=== PATIENT | male | born 1975 | race Caucasian/White ===

== ENCOUNTER 2016-10-21 01:31 | Emergency (ER) | payer SELFPAY ==
[~2016-10-21] VITALS: Ht 172.7 cm; Wt 72.6 kg
[2016-10-21] MEDS ORDERED: ONDANSETRON HCL 4 MG/2 ML VIAL IV ONE (04:00)
[2016-10-21] MEDS ORDERED: HYDROmorphone HCL 2 MG/ML VL IV ONE (04:00)
[2016-10-21] MEDS ORDERED: TETANUS-DIPTH-ACEL PERTUSSIS 0.5ML SYRG IM ONE (04:00)
[2016-10-21] MEDS ORDERED: SODIUM CHLORIDE 0.9% 1,000 ML IV ONE (04:30)
[2016-10-21] MEDS ORDERED: LIDOCAINE W/ EPINEPHRINE 1% 20ML VIAL SC ONE (04:45)
[2016-10-21] MEDS ORDERED: LORazepam 2MG/ML-1ML VIAL IV ONE (05:45)
[2016-10-21 06:30] VITALS: BP 112/72
== END 2016-10-21 06:36 | disposition home or self-care (01) ==
LOC: ER 01:31
DX: S01.01XA Laceration without foreign body of scalp, initial encounter (principal); Z88.6 Allergy status to analgesic agent; J45.909 Unspecified asthma, uncomplicated; S11.91XA Laceration without foreign body of unspecified part of neck, initial encounter; V49.49XA Driver injured in collision with other motor vehicles in traffic accident, initial encounter; Y93.89 Activity, other specified; Y99.9 Unspecified external cause status; Y92.411 Interstate highway as the place of occurrence of the external cause; Z23 Encounter for immunization
CPT/HCPCS: 12002; 70450; 71250; 72125; 74176; 90471; 90715; 94761; 96361; 96374; 96375; 99284; J1170; J2060; J2405; J7030; 12001; 12013